=== PATIENT | female | born 1990 | race Two or more races ===

== ENCOUNTER 2022-06-05 13:45 | Inpatient (IN) | payer OTHER ==
[~2022-06-05] VITALS: Ht 170.2 cm; Wt 68.0 kg
[2022-06-13] MEDS ORDERED: PRENATAL TABLE1 EAC1 PO (06:33)
[2022-06-13] MEDS ORDERED: DULCOLAX5 MG PO (08:09)
[2022-06-13] MEDS ORDERED: TUMS200 MG PO (08:09)
== END 2022-06-15 14:12 | disposition home or self-care (01) | DRG 807 ==
LOC: LDR 06-13 06:22 → OB/GYN 06-13 16:18
PROVIDERS: ADMIT Obstetrics & Gynecology Maternal & Fetal Medicine; ATTEND Obstetrics & Gynecology Maternal & Fetal Medicine
PROC: 10E0XZZ Delivery of Products of Conception, External Approach (ICD-10-PCS; principal; 2022-06-13)
PROC: 0KQM0ZZ Repair Perineum Muscle, Open Approach (ICD-10-PCS; 2022-06-13)
PROC: 4A1HXCZ Monitoring of Products of Conception, Cardiac Rate, External Approach (ICD-10-PCS; 2022-06-13)
DX: O70.1 Second degree perineal laceration during delivery (principal); O99.820 Streptococcus B carrier state complicating pregnancy; Z3A.39 39 weeks gestation of pregnancy; Z37.0 Single live birth; Z20.822 Contact with and (suspected) exposure to COVID-19

== ENCOUNTER 2022-06-08 16:06 | Outpatient (CLI) | payer OTHER | END 2022-06-08 16:35 | disposition home or self-care (01) | LOC: NST 16:06 | PROVIDERS: ATTEND Obstetrics & Gynecology Maternal & Fetal Medicine | DX: Z34.83 Encounter for supervision of other normal pregnancy, third trimester (principal) ==